=== PATIENT | female | born 1980 | race Two or more races ===

== ENCOUNTER → 2024-07-01 | Outpatient (CLI) | payer MEDICAID, SELFPAY ==
--- NOTE | 2024-07-01 07:45 | XR_ITS ---
Examination: Breast ultrasound, unilateral, left complete Date and time of exam: July 01, 2024 0812 hours INDICATIONS: Enlarging nodule left breast 1:00 position on mammogram November 10, 2022, history left breast biopsy 1:00 nodule January 27, 2023 negative for carcinoma, left breast sonogram November 10, 2022 1:00 vascular mass 3.7 x 2.3 x 2.8 cm Technique: Real-time juares scale ultrasonographic imaging performed left breast including all 4 quadrants as well as nipple retroareolar and axillary region. Findings: 3:00 cyst 7 x 9 mm 4:00 cyst 10 x 10 mm Additional smaller cysts No solid masses IMPRESSION: BI-RADS Category 2: Benign findings
--- NOTE | 2024-07-01 08:15 | XR_ITS ---
Examination: Diagnostic digital mammography, bilateral Computer aided detection 3-D breast Tomosynthesis, bilateral Date and time of exam: July 01, 2024 0826 hours COMPARISON: November 10, 2022 INDICATIONS: History left breast biopsy, biopsy enlarging nodule 1:00 position left breast January 27, 2023, negative Technique: Nonmagnified MLO, CC views of the breasts to been obtained, reconstructed from 3-D Tomosynthesis images. R2 computer aided detection program utilized for evaluation of suspicious masses and/or abnormal calcifications. 3-D Tomosynthesis images obtained. Findings: The breasts are heterogeneously dense, which may obscure small masses 6 mm circumscribed oval mass upper outer right breast Benign calcifications Impression: BI-RADS Category 0: Incomplete: Need additional imaging evaluation 6 mm circumscribed oval mass upper outer right breast, recommend follow-up spot tomographic views of this mass as well as bilateral breast sonography to complete the workup.
== END | disposition home or self-care (01) ==
PROVIDERS: Referring Provider Obstetrics & Gynecology; Visit Provider Obstetrics & Gynecology
DX: R92.8 Other abnormal and inconclusive findings on diagnostic imaging of breast (principal); N63.11 Unspecified lump in the right breast, upper outer quadrant; N60.02 Solitary cyst of left breast
CPT/HCPCS: 76641; 77062; 77066; G0279

== ENCOUNTER → 2024-09-16 | Outpatient (CLI) | payer MEDICAID, SELFPAY ==
--- NOTE | 2024-09-16 14:45 | XR_ITS ---
Examination: Breast ultrasound complete, bilateral Date and time of exam: September 16, 2024 at 1454 hours INDICATIONS: Mammogram July 01, 2024 6 mm circumscribed oval mass upper outer right breast, history left breast 1:00 lumpectomy March 2023 negative for carcinoma Technique: Real-time grayscale ultrasonographic imaging bilateral breasts, including all 4 quadrants as well as nipple retroareolar and axillary regions. Findings: Sonographic images right breast 1:00 nodule lobular margins 8 x 8 mm 8:00 nodule lobular margins 14 x 10 mm 9:00 circumscribed nodule 12 x 12 mm Retroareolar cyst 8 x 7 mm 4.5 cm axillary lymph node Sonographic images left breast Multiple benign cysts, the largest in the 5:00 position 10 x 7 mm No solid nodules IMPRESSION: BI-RADS Category 3: Probably benign findings One additional 6 month right breast sonogram follow-up strongly recommended to document stability of multiple solid nodules described above
--- NOTE | 2024-09-16 15:45 | XR_ITS ---
Examination: Diagnostic digital mammography, unilateral, right Computer aided detection 3-D breast Tomosynthesis, unilateral Date and time of exam: September 16, 2024 1525 hours INDICATIONS: Mammogram July 01, 2024 6 mm oval mass outer right breast Technique: Nonmagnified MLO, CC views of the right breast have been obtained, reconstructed from 3-D Tomosynthesis images. R2 computer aided detection program utilized for evaluation of suspicious masses and/or abnormal calcifications. 3-D Tomosynthesis images obtained. Findings: The breast is heterogeneously dense, which may obscure small masses 17 mm focal asymmetry is confirmed in the outer right breast on the spot compression cc view, not clearly identified on the spot compression MLO view Impression: BI-RADS category 3: Probably benign findings One additional 6 month right mammogram follow-up is needed to document stability of 17 mm focal asymmetry outer right breast on the current spot compression cc view
== END | disposition home or self-care (01) ==
LOC: CDIM 14:38
PROVIDERS: Referring Provider Nurse Practitioner Family; Visit Provider Nurse Practitioner Family
DX: R92.331 Mammographic heterogeneous density, right breast (principal); N64.89 Other specified disorders of breast
CPT/HCPCS: 76641; 77061; 77065; G0279

== ENCOUNTER → 2025-06-05 | Outpatient (CLI) | payer MEDICAID, SELFPAY ==
--- NOTE | 2025-06-05 10:00 | XR_ITS ---
Examination: Breast ultrasound, unilateral, right complete Date and time of exam: May,, 1019 hours INDICATIONS: Multiple solid nodules right breast including 1:00 nodule 8 mm 8:00 nodule 14 mm 9:00 nodule 12 mm Technique: Real-time juares scale ultrasonographic imaging performed right breast including all 4 quadrants as well as nipple retroareolar and axillary region. Findings: Sonographic images right breast 1:00 nodule circumscribed 6 x 6 mm 10:00 nodule circumscribed 7 x 5 mm 8:00 nodule lobular margins 14 x 11 mm 9:00 nodule circumscribed 6 x 6 mm Retroareolar cyst 7 x 5 mm Dilated ducts 4.7 cm right axillary lymph node IMPRESSION: BI-RADS Category 3: Probably benign findings Recommend continued 6-month right breast sonogram follow-up to document stability of multiple solid nodules described above as well as enlarged right axillary lymph node
--- NOTE | 2025-06-05 10:30 | XR_ITS ---
Examination: Diagnostic digital mammography, unilateral, right Computer aided detection 3-D breast Tomosynthesis, unilateral Date and time of exam: 825, 10:32 a.m. Comparisons: 09/16/2024 Indications: Follow-up probably benign 17 mm focal asymmetry outer right breast. Technique: Nonmagnified MLO, CC views of the right breast have been obtained, reconstructed from 3-D Tomosynthesis images. R2 computer aided detection program utilized for evaluation of suspicious masses and/or abnormal calcifications. 3-D Tomosynthesis images obtained. Technologist: Findings: The breasts are heterogeneously dense, which may obscure small masses. Focal asymmetry appears stable and benign. Multiple benign-appearing partially obscured oval masses. No suspicious calcifications. Impression: BI-RADS category 2: Benign findings Recommend 1 year follow-up mammogram
== END | disposition home or self-care (01) ==
LOC: CDIM 09:56 → SDIM 10:01 → CDIM 14:31
PROVIDERS: PCP Obstetrics & Gynecology; Referring Provider Obstetrics & Gynecology; Visit Provider Obstetrics & Gynecology
DX: N63.15 Unspecified lump in the right breast, overlapping quadrants (principal); N63.11 Unspecified lump in the right breast, upper outer quadrant; N63.12 Unspecified lump in the right breast, upper inner quadrant; N63.13 Unspecified lump in the right breast, lower outer quadrant
CPT/HCPCS: 76641; 77061; 77065; G0279